=== PATIENT | female | born 1965 | race Caucasian/White ===

== ENCOUNTER 2022-04-05 21:32 | Inpatient (IN) ==
[2022-04-05 23:00] LABS: Influenza A virus by PCR Negative (Neg); Influenza B virus by PCR Negative (Neg); RSV by PCR Negative (Neg); SARS CoV2 RNA(COVID-19) Ceph NEGATIVE (Negative)
[2022-04-05] MEDS ORDERED: SODIUM CHLORIDE 0.9% 1000ML 1,000 ML IV ONE (23:16)
--- NOTE | 2022-04-05 23:22 | Emergency Department Note ---
History of Present Illness General Chief complaint: Weakness Stated complaint: WEAKNESS, FLU LIKE SX Time Seen by Provider: 04/05/22 22:56 History of Present Illness 56-year-old female visiting from [facility] states that she was diagnosed with a urinary tract infection 4 days ago is currently on Macrobid states today she had shaking chills and rigors. Patient called EMS she denies cough cold congestion symptoms. Patient states that during COVID she was in the ICU in [place] due to pneumonia. States that she feels generally weak. Patient denies any flank or back pain denies abdominal pain. Denies chest pain. There are no other mitigating or alleviating factors Home Medications Medication Instructions Recorded Confirmed Type alprazolam 0.5 mg tablet 0.5 - 1 mg PO DIRECTED PRN 04/05/22 04/05/22 History Anxiety fluticasone propionate 50 1 spray intranasal DAILY PRN 04/05/22 04/05/22 History mcg/actuation nasal Congestion spray,suspension lisinopril 40 mg tablet 40 mg PO DAILY 04/05/22 04/05/22 History metoprolol succinate 100 mg 100 mg PO DAILY 04/05/22 04/05/22 History tablet,extended release 24 hr nitrofurantoin 100 mg PO BID 04/05/22 04/05/22 History monohydrate/macrocrystals 100 mg capsule (Macrobid) Allergies Allergy/AdvReac Type Severity Reaction Status Date / Time Sulfa (Sulfonamide Allergy Intermediate Rash Verified 04/05/22 23:48 Antibiotics) SINA COLORING Allergy Severe Anaphylaxis Uncoded 04/05/22 23:48 Past Med/Surg History Social History Smoking Status: Never smoker Feels Safe at Home: Yes Immunizations: Past medical history includes sepsis, pneumonia, intubated in the ICU during COVID, urinary tract infection, hypertension Review of Systems A total of 10 systems reviewed and were otherwise negative Constitutional: + fever, + chills and + body aches Respiratory: no cough Genitourinary (Female): no dysuria Physical Exam Vital Signs Vital Signs - 24 hr 04/05/22 21:44 04/05/22 22:54 04/05/22 22:58 Temperature 37 C Temperature Source Temporal Artery Scan Pulse Rate 91 H 101 H Pulse Rate [Right Finger] 103 H Pulse Rate from SpO2 Sensor Pulse Rhythm [Right Finger] Regular Pulse Strength [Right Finger] Normal Respiratory Rate 14 19 Respiratory Effort / Characteristics Non-Labored Spontaneous Respiratory Depth Normal Normal Respiratory Pattern Regular Blood Pressure 117/76 Blood Pressure [Right Arm] 125/86 Blood Pressure Mean 89 Blood Pressure Mean [Right Arm] 99 Blood Pressure Position [Right Arm] Lying Pulse Oximetry 93 94 Oxygen Delivery Method Room Air Oxygen Flow Rate Sepsis Recent Fever Within 48 Hours Yes Sepsis New/Unexplained Change in Mental Status No Sepsis Action Taken by Nursing No Action Required Oxygen Flow Rate - Titration Pulse Oximetry Post Tiitration 04/06/22 00:00 04/06/22 00:43 04/06/22 01:46 Temperature 37.9 C H Temperature Source Oral Pulse Rate 95 H 101 H Pulse Rate [Right Finger] Pulse Rate from SpO2 Sensor 95 H 102 H Pulse Rhythm [Right Finger] Pulse Strength [Right Finger] Respiratory Rate 28 H 26 H Respiratory Effort / Characteristics Respiratory Depth Respiratory Pattern Blood Pressure 139/95 Blood Pressure [Right Arm] Blood Pressure Mean 109 Blood Pressure Mean [Right Arm] Blood Pressure Position [Right Arm] Pulse Oximetry 92 91 Oxygen Delivery Method Room Air Oxygen Flow Rate Sepsis Recent Fever Within 48 Hours Sepsis New/Unexplained Change in Mental Status Sepsis Action Taken by Nursing Oxygen Flow Rate - Titration Pulse Oximetry Post Tiitration 04/06/22 01:55 04/06/22 02:58 04/06/22 02:45 Temperature Temperature Source Pulse Rate 103 H Pulse Rate [Right Finger] 92 H Pulse Rate from SpO2 Sensor Pulse Rhythm [Right Finger] Regular Pulse Strength [Right Finger] Normal Respiratory Rate 14 Respiratory Effort / Characteristics Non-Labored Spontaneous Respiratory Depth Normal Respiratory Pattern Regular Blood Pressure Blood Pressure [Right Arm] 148/88 H Blood Pressure Mean Blood Pressure Mean [Right Arm] 108 Blood Pressure Position [Right Arm] Pulse Oximetry 97 Oxygen Delivery Method Room Air Nasal Cannula Room Air Oxygen Flow Rate 88 Sepsis Recent Fever Within 48 Hours Sepsis New/Unexplained Change in Mental Status Sepsis Action Taken by Nursing Oxygen Flow Rate - Titration 2 Pulse Oximetry Post Tiitration 92 04/06/22 03:52 04/06/22 04:32 04/06/22 05:41 Temperature Temperature Source Pulse Rate 84 Pulse Rate [Right Finger] 86 Pulse Rate from SpO2 Sensor Pulse Rhythm [Right Finger] Regular Pulse Strength [Right Finger] Normal Respiratory Rate 14 15 Respiratory Effort / Characteristics Non-Labored Spontaneous Respiratory Depth Normal Respiratory Pattern Regular Blood Pressure 139/95 Blood Pressure [Right Arm] 139/94 Blood Pressure Mean Blood Pressure Mean [Right Arm] 109 Blood Pressure Position [Right Arm] Pulse Oximetry 90 96 Oxygen Delivery Method Nasal Cannula Nasal Cannula Nasal Cannula Oxygen Flow Rate 2 2 2 Sepsis Recent Fever Within 48 Hours Sepsis New/Unexplained Change in Mental Status Sepsis Action Taken by Nursing Oxygen Flow Rate - Titration Pulse Oximetry Post Tiitration 95 GENERAL: Patient is awake alert in no acute distress patient is resting comfortably and showing no signs of anxiety EYES: The conjunctivae are clear. The pupils are round and reactive. EARS, NOSE, MOUTH AND THROAT: The nose is without any evidence of any deformity. Mucous membranes are moist. Tongue is midline. NECK: The neck is nontender and supple. RESPIRATORY: Normal respiratory effort is noted there is no evidence of wheezing rhonchi or rales CARDIOVASCULAR: Regular rate and rhythm noted there no murmurs rubs or gallops normal S1 normal S2. GASTROINTESTINAL: The abdomen is soft. Abdomen is nontender. BACK: No midline tenderness or or step-off noted range of motion in flexion extension as well as rotation no signs of muscle spasm noted MUSCULOSKELETAL/EXTREMITIES: There is no evidence of gross deformity full range of motion is noted in the hips and shoulders. SKIN: There is no obvious evidence of any rash. There are no petechiae, pallor or cyanosis noted. NEUROLOGIC: Patient is awake alert and oriented x3 strength is symmetric PSYCH: Normal affect Course Reevaluation(s) Reevaluation #1: On reexamination the patient is tachycardic heart rate is 110 pulse ox is 91%. I reassessed the patient she states that earlier tonight she was short of breath when she was walking on the campus. Patient states that she traveled in from [place] via car. He had a prior admission 2 years ago for pneumonia. Time: 01:50 Reevaluation #2: Patient was given Motrin, patient was given IV fluids, patient was started on antibiotics, I suspect that the patient may have early sepsis and pneumonia Time: 04:55 Consultations Consultation #1: Case was discussed with the [facility]ist for admission Time: 05:15 Administered Medications Discontinued Medications Sodium Chloride (Nss 1000ml) 1,000 mls @ 999 mls/hr IV .Q1H1M ONE Stop: 04/06/22 00:16 Last Infusion: 04/06/22 00:36 Dose: 999 mls/hr Documented By: Admin: 04/05/22 23:31 Dose: 999 mls/hr Documented By: LUCILA Sodium Chloride (Nss 1000ml) 2,000 mls @ 999 mls/hr IV .Q2H1M ONE Stop: 04/06/22 03:42 Last Infusion: 04/06/22 05:08 Dose: 999 mls/hr Documented By: Infusion: 04/06/22 03:44 Dose: 999 mls/hr Documented By: Admin: 04/06/22 01:47 Dose: 999 mls/hr Documented By: BUCK Ceftriaxone Sodium (Rocephin) 2,000 mg in 70 mls @ 140 mls/hr IV NOW STA Stop: 04/06/22 02:11 Last Infusion: 04/06/22 02:51 Dose: 140 mls/hr Documented By: Admin: 04/06/22 01:51 Dose: 140 mls/hr Documented By: BUCK Ibuprofen (Ibuprofen 800 Mg Tab) 800 mg PO NOW STA Stop: 04/06/22 01:50 Last Admin: 04/06/22 01:53 Dose: 800 mg Documented By: BUCK Ioversol (Optiray 320 500ml) 125 ml IV ONCE ONE Stop: 04/06/22 03:33 Last Admin: 04/06/22 03:33 Dose: 109 ml Documented By: CONNOR Medical Decision Making Medical Records Attestation: I reviewed the patient's medical records. Home Medications Current Medication List: was personally reviewed by Laboratory Data Attestation: I reviewed the patient's lab results. Patient's lab work was reviewed by patient is not anemic 04/05/22 22:41 04/05/22 22:41 Lab Results 04/05/22 04/05/22 04/05/22 Range/Units 21:48 22:41 22:41 WBC 10.93 H (4.8-10.8) K/ul RBC 3.69 L (4.20-5.40) M/uL Hgb 13.2 (12.0-16.0) g/dl Hct 37.9 (37.0-47.0) % MCV 102.7 H (80.0-100.0) fL MCH 35.8 H (25.0-34.0) pg MCHC 34.8 (32.0-36.0) g/dL RDW Std Deviation 51.0 H (36.4-46.3) fL RDW Coeff of Aly 13.4 (11.5-14.5) % Plt Count 175 (130-400) K/uL MPV 11.8 (9.4-12.4) fL Immature Gran % (Auto) 0.6 % Neut % (Auto) 92.6 % Lymph % (Auto) 2.7 % [place] % (Auto) 3.2 % Eos % (Auto) 0.8 % Baso % (Auto) 0.1 % Neut # (Auto) 10.11 H (1.40-6.50) K/uL Lymph # (Auto) 0.30 L (1.2-3.4) K/uL [place] # (Auto) 0.35 (0.11-0.59) K/uL Eos # (Auto) 0.09 (0-0.50) K/uL Baso # (Auto) 0.01 (0-0.2) K/uL Immature Gran # (Auto) 0.07 (0.01-0.20) K/uL Toxic Vacuolation 1+ Sodium 135 L (136-145) mmol/L Potassium 3.8 (3.5-5.1) mmol/L Chloride 104 (98-107) mmol/L Carbon Dioxide 23 (21-32) mmol/L Anion Gap 8 (3-11) BUN 15 (6-23) mg/dl Creatinine 0.64 (0.6-1.2) mg/dl Est Cr Clr Drug Dosing 112.3 ml/min Est GFR ( Amer) 117.3 ml/min Est GFR (Non-Af Amer) 101.2 ml/min BUN/Creatinine Ratio 23.4 H (10-20) Glucose 126 H (70-99(Fasting)) mg/dl Lactate (0.4-2.0) mmol/L Calcium 9.7 (8.5-10.1) mg/dl Total Bilirubin 1.1 H (0.2-1.0) mg/dl AST 19 (13-39) U/L ALT 17 (7-52) U/L Alkaline Phosphatase 73 (34-104) U/L Troponin I High Sens 4.8 (0-14) pg/ml Total Protein 6.9 (6.0-8.3) gm/dl Albumin 4.5 (3.4-5.0) gm/dl Globulin 2.4 L (2.5-4.0) gm/dl Albumin/Globulin Ratio 1.9 (0.9-2) Urine Color Urine Appearance (Clear) Urine pH (4.5-7.5) Ur Specific [place] (1.000-1.030) Urine Protein (Negative) Urine Glucose (UA) (Negative) Urine Ketones (Negative) Urine Blood (Negative) Urine Nitrite (Negative) Urine Bilirubin (Negative) Urine Urobilinogen (Negative) Ur Leukocyte Esterase (Negative) Urine RBC (0-4) /hpf Urine WBC (0-5) /hpf Ur Epithelial Cells (0-5) /lpf Urine Bacteria (Negative) SARS-CoV-2 (PCR) NEGATIVE (Negative) Influenza Type A (PCR) Negative (Neg) Influenza Type B (PCR) Negative (Neg) RSV (RT-PCR) Negative (Neg) 04/05/22 04/05/22 Range/Units 23:12 23:23 WBC (4.8-10.8) K/ul RBC (4.20-5.40) M/uL Hgb (12.0-16.0) g/dl Hct (37.0-47.0) % MCV (80.0-100.0) fL MCH (25.0-34.0) pg MCHC (32.0-36.0) g/dL RDW Std Deviation (36.4-46.3) fL RDW Coeff of Aly (11.5-14.5) % Plt Count (130-400) K/uL MPV (9.4-12.4) fL Immature Gran % (Auto) % Neut % (Auto) % Lymph % (Auto) % [place] % (Auto) % Eos % (Auto) % Baso % (Auto) % Neut # (Auto) (1.40-6.50) K/uL Lymph # (Auto) (1.2-3.4) K/uL [place] # (Auto) (0.11-0.59) K/uL Eos # (Auto) (0-0.50) K/uL Baso # (Auto) (0-0.2) K/uL Immature Gran # (Auto) (0.01-0.20) K/uL Toxic Vacuolation Sodium (136-145) mmol/L Potassium (3.5-5.1) mmol/L Chloride (98-107) mmol/L Carbon Dioxide (21-32) mmol/L Anion Gap (3-11) BUN (6-23) mg/dl Creatinine (0.6-1.2) mg/dl Est Cr Clr Drug Dosing ml/min Est GFR ( Amer) ml/min Est GFR (Non-Af Amer) ml/min BUN/Creatinine Ratio (10-20) Glucose (70-99(Fasting)) mg/dl Lactate 1.3 (0.4-2.0) mmol/L Calcium (8.5-10.1) mg/dl Total Bilirubin (0.2-1.0) mg/dl AST (13-39) U/L ALT (7-52) U/L Alkaline Phosphatase (34-104) U/L Troponin I High Sens (0-14) pg/ml Total Protein (6.0-8.3) gm/dl Albumin (3.4-5.0) gm/dl Globulin (2.5-4.0) gm/dl Albumin/Globulin Ratio (0.9-2) Urine Color [place] Urine Appearance Clear (Clear) Urine pH (4.5-7.5) Ur Specific [place] 1.025 (1.000-1.030) Urine Protein (Negative) Urine Glucose (UA) (Negative) Urine Ketones (Negative) Urine Blood (Negative) Urine Nitrite (Negative) Urine Bilirubin (Negative) Urine Urobilinogen (Negative) Ur Leukocyte Esterase (Negative) Urine RBC 10-30 H (0-4) /hpf Urine WBC 10-30 H (0-5) /hpf Ur Epithelial Cells 20-30 H (0-5) /lpf Urine Bacteria Negative (Negative) SARS-CoV-2 (PCR) (Negative) Influenza Type A (PCR) (Neg) Influenza Type B (PCR) (Neg) RSV (RT-PCR) (Neg) Imaging Data Attestation: I personally reviewed and interpreted this imaging study as follows: ECG Data Attestation: I personally reviewed and interpreted this ECG as follows: Additional Comments: EKG interpreted by me normal sinus rhythm rate of 99 normal intervals normal axis no obvious ST segment elevation or depression no prior for comparison MDM Narrative Medical decision making differential diagnosis includes sepsis, urinary tract infection, pneumonia, viral syndrome, dehydration Plan is to check sepsis labs, give IV fluids Patient had CTs performed, patient was started on IV fluids patient was given a fluid bolus, patient was started on antibiotics I suspect the patient may have early sepsis Case was discussed with the hospitalist for admission Impression & Plan Sepsis, Pneumonia, Hypoxia Discharge Plan Visit Data Chief Complaint: Weakness Stated Complaint: WEAKNESS, FLU LIKE SX ED Provider: Michael Petersen Discharge Problem: Sepsis, Pneumonia, Hypoxia Patient Disposition: Admitted As Inpatient Discharge Instructions Interventions: ED Discharge Assessment Last Done: 04/06/22 05:41 Forms Stand Alone Forms: My [employer] Prescriptions Prescriptions: No Action metoprolol succinate 100 mg Tablet Extended Release 24 Hr 100 mg PO DAILY alprazolam 0.5 mg Tablet 0.5 - 1 mg PO DIRECTED PRN (Reason: Anxiety) lisinopril 40 mg Tablet 40 mg PO DAILY fluticasone propionate [Flonase] 50 mcg/actuation [place],Suspension 1 spray INTRANASAL DAILY PRN (Reason: Congestion) Rx Instructions: administer into each nostril nitrofurantoin monohyd/m-cryst [Macrobid] 100 mg Capsule 100 mg PO BID Rx Instructions: must administer with a meal/food Referrals Referrals: PCPNO [Primary Care Provider] -
[2022-04-05 23:32] LABS: Albumin Globulin Ratio 1.9 (0.9-2); Albumin Level 4.5 gm/dl (3.4-5.0); BUN Creatinine Ratio 23.4 (10-20); Bilirubin,Total 1.1 mg/dl (0.2-1.0); Calcium 9.7 mg/dl (8.5-10.1); Creatinine Clr Calc Pharmacy 112.3 ml/min; Est GFR (African American) 117.3 ml/min; Est GFR (Non-African American) 101.2 ml/min; Globulin 2.4 gm/dl (2.5-4.0); Potassium 3.8 mmol/L (3.5-5.1); Total Protein 6.9 gm/dl (6.0-8.3)
[2022-04-05 23:39] LABS: Hematocrit (blood only) 37.9 % (37.0-47.0); Hemoglobin 13.2 g/dl (12.0-16.0); Mean Corpuscular Hemoglobin 35.8 pg (25.0-34.0); Mean Corpuscular Hgb Conc 34.8 g/dL (32.0-36.0); Mean Corpuscular Volume 102.7 fL (80.0-100.0); Mean Platelet Volume 11.8 fL (9.4-12.4); Platelet Count 175 K/uL (130-400); RDW Coefficient of Variation 13.4 % (11.5-14.5); Red Blood Count 3.69 M/uL (4.20-5.40); Troponin I High Sensitivity 4.8 pg/ml (0-14); White Blood Count 10.93 K/ul (4.8-10.8)
[2022-04-05 23:55] LABS: Appearance Urine Clear (Clear); Color Urine Orange; Specific Gravity Urine 1.025 (1.000-1.030)
[2022-04-05 23:57] LABS: Epithelial Cell Urine 20-30 /lpf (0-5)
[2022-04-05 23:58] LABS: Bacteria Urine Negative (Negative)
[2022-04-06 00:02] LABS: Basophils # (auto) 0.01 K/uL (0-0.2); Basophils % (auto) 0.1 %; Eosinophils # (auto) 0.09 K/uL (0-0.50); Eosinophils % (auto) 0.8 %; Immature Granulocytes # (auto) 0.07 K/uL (0.01-0.20); Immature Granulocytes % (auto) 0.6 %; Lymphocytes % (auto) 2.7 %; Monocytes # (auto) 0.35 K/uL (0.11-0.59); Monocytes % (auto) 3.2 %; Neutrophils # (auto) 10.11 K/uL (1.40-6.50); Neutrophils % (auto) 92.6 %; Toxic Vacuolation 1+
[2022-04-06] MEDS ORDERED: SODIUM CHLORIDE 0.9% 1000ML 2,000 ML IV ONE (01:42)
[2022-04-06] MEDS ORDERED: cefTRIAXone SODIUM 2,000 MG/70 ML BAG IV STA (01:42)
[2022-04-06] MEDS ORDERED: IBUPROFEN 800 MG TAB PO STA (01:49)
[2022-04-06] MEDS ORDERED: OPTIRAY 320 500ml IV ONE (03:32)
--- NOTE | 2022-04-06 06:08 | History & Physical Report ---
Date of Service April 06, 2022 Assessment & Plan (1) Pneumonia: Plan: Suspect pneumonia - patient with fever, chills, body aches, left sided back pain. Also with mild leukocytosis and hypoxia requiring supplemental O2. -Follow cultures -Check procalcitonin -Ceftriaxone and Azithromycin -Supplemental O2 PRN (2) Hypertension: Plan: Chronic. Well controlled -Continue Lisinopril 40mg po daily -Continue Metoprolol -Monitor BP -Await formal CT read -Tylenol PRN -Ibuprofen PRN -Check BNP (3) Anxiety: Plan: Chronic -Continue Xanax PRN F/E/N - [place]. Monitor electrolytes. Heart healthy diet as tolerated Ppx - Lovenox Code - Full Dispo - Admit to medical with telemetry History of Present Illness Chief Complaint: fever, chills Primary Care Provider: ALEXIS PCP Tala SouzaGina is a pleasant 56yo female with history of HTN presenting with fever, chills and back pain. Patient reports she began to develop UTI symptoms several days ago. She started taking Macrobid. Yesterday 04/05/22 she woke up feeling very ill - fever, chills and body aches as well as SOB and some mild dry cough and chest tightness. She has pain in her back behind her left shoulder as well as across her mid-thoracic region. Feels as though she cannot take a deep breath. She denies abdominal pain, nausea, vomiting or diarrhea. Does have persistent dysuria. Otherwise, no additional complaints. On arrival patient mildly hypoxic with saturation of 92% on room air. She is currently on supplemental O2 - 2L NC saturating 96%. Of note, patient has a history of severe PNA in February 2019 for which she was ventilated x 5 days. Symptoms feel similar. ER Course: ceftriaxone NSS Ibuprofen Allergies Allergy/AdvReac Type Severity Reaction Status Date / Time Sulfa (Sulfonamide Allergy Intermediate Rash Verified 04/05/22 23:48 Antibiotics) SINA COLORING Allergy Severe Anaphylaxis Uncoded 04/05/22 23:48 Home Medications Medication Instructions Recorded Confirmed Type alprazolam 0.5 mg tablet 0.5 - 1 mg PO DIRECTED PRN 04/05/22 04/05/22 History Anxiety fluticasone propionate 50 1 spray intranasal DAILY PRN 04/05/22 04/05/22 History mcg/actuation nasal Congestion spray,suspension lisinopril 40 mg tablet 40 mg PO DAILY 04/05/22 04/05/22 History metoprolol succinate 100 mg 100 mg PO DAILY 04/05/22 04/05/22 History tablet,extended release 24 hr nitrofurantoin 100 mg PO BID 04/05/22 04/05/22 History monohydrate/macrocrystals 100 mg capsule (Macrobid) Past Med/Surg History Medical History (Updated 04/06/22 @ 06:01 by Corrina Sterling DO) Anxiety Hypertension Pneumonia Surgical History (Updated 04/06/22 @ 06:02 by Corrina Sterling DO) History of appendectomy History of dilation and curettage History of thumb surgery Family History (Updated 04/06/22 @ 06:02 by Corrina Sterling DO) Other Heart disease Social History (Updated 04/06/22 @ 06:02 by Corrina Sterling DO) Smoking Status: Current some day smoker Hx Alcohol Use: Yes Hx Substance Use: No Feels Safe at Home: Yes Review of Systems Review of Systems: All systems reviewed & are unremarkable except as noted in HPI & below Physical Exam Physical Exam: General: patient resting comfortably, NAD, non-toxic in appearance, AA&O x 4 Skin: warm, dry, intact, no rashes or lesions HEENT: NC/AT, PERRL, EOMI, anicteric sclera, conjunctiva without injection, external ear normal to inspection and nontender, nares patent, moist mucus membranes, dentition intact, no oropharyngeal lesions, neck supple, trachea midl ine, no LAD, no thyromegaly, no JVD Heart: +S1/S2, regular, no m/r/g Lungs: equal air entry bilaterally, faint crackles bilateral lung bases, no rhonchi or wheeze Abd: +BS, soft, NT/ND, no masses/organomegaly/ascites, no CVA tenderness Ext: warm, 2+ pulses in UE/LE bilaterally, no clubbing/cyanosis or edema Neuro: nonfocal, patient AA&O x 4, speech intact, no facial droop, moving all extremities on command with equal strength 5/5 Results & Data Results & Data ([facility]) Vital Signs (Past 12 Hours) Vital Signs Temp Pulse Pulse Resp BP BP Pulse Ox 04/06/22 05:41 84 15 139/95 04/06/22 04:32 86 14 139/94 96 04/06/22 03:52 90 04/06/22 02:45 92 H 14 148/88 H 97 04/06/22 02:58 103 H 04/06/22 01:55 04/06/22 01:46 37.9 C H 04/06/22 00:43 101 H 26 H 139/95 91 04/06/22 00:00 95 H 28 H 92 04/05/22 22:58 101 H 04/05/22 22:54 103 H 19 125/86 94 04/05/22 21:44 37 C 91 H 14 117/76 93 O2 Del Method O2 Flow Rate 04/06/22 05:41 Nasal Cannula 2 04/06/22 04:32 Nasal Cannula 2 04/06/22 03:52 Nasal Cannula 2 04/06/22 02:45 Room Air 04/06/22 02:58 04/06/22 01:55 Room Air, Nasal Cannula 88 04/06/22 01:46 04/06/22 00:43 Room Air 04/06/22 00:00 04/05/22 22:58 04/05/22 22:54 Room Air 04/05/22 21:44 Laboratory Results Laboratory Results WBC 10.93 K/ul (4.8-10.8) H 04/05/22 22:41 RBC 3.69 M/uL (4.20-5.40) L 04/05/22 22:41 Hgb 13.2 g/dl (12.0-16.0) 04/05/22 22:41 Hct 37.9 % (37.0-47.0) 04/05/22 22:41 MCV 102.7 fL (80.0-100.0) H 04/05/22 22:41 MCH 35.8 pg (25.0-34.0) H 04/05/22 22:41 MCHC 34.8 g/dL (32.0-36.0) 04/05/22 22:41 RDW Std Deviation 51.0 fL (36.4-46.3) H 04/05/22 22:41 RDW Coeff of Aly 13.4 % (11.5-14.5) 04/05/22 22:41 Plt Count 175 K/uL (130-400) 04/05/22 22:41 MPV 11.8 fL (9.4-12.4) 04/05/22 22:41 Immature Gran % (Auto) 0.6 % 04/05/22 22:41 Neut % (Auto) 92.6 % 04/05/22 22:41 Lymph % (Auto) 2.7 % 04/05/22 22:41 [place] % (Auto) 3.2 % 04/05/22 22:41 Eos % (Auto) 0.8 % 04/05/22 22:41 Baso % (Auto) 0.1 % 04/05/22 22:41 Neut # (Auto) 10.11 K/uL (1.40-6.50) H 04/05/22 22:41 Lymph # (Auto) 0.30 K/uL (1.2-3.4) L 04/05/22 22:41 [place] # (Auto) 0.35 K/uL (0.11-0.59) 04/05/22 22:41 Eos # (Auto) 0.09 K/uL (0-0.50) 04/05/22 22:41 Baso # (Auto) 0.01 K/uL (0-0.2) 04/05/22 22:41 Immature Gran # (Auto) 0.07 K/uL (0.01-0.20) 04/05/22 22:41 Toxic Vacuolation 1+ 04/05/22 22:41 Sodium 135 mmol/L (136-145) L 04/05/22 22:41 Potassium 3.8 mmol/L (3.5-5.1) 04/05/22 22:41 Chloride 104 mmol/L (98-107) 04/05/22 22:41 Carbon Dioxide 23 mmol/L (21-32) 04/05/22 22:41 Anion Gap 8 (3-11) 04/05/22 22:41 BUN 15 mg/dl (6-23) 04/05/22 22:41 Creatinine 0.64 mg/dl (0.6-1.2) 04/05/22 22:41 Est Cr Clr Drug Dosing 112.3 ml/min 04/05/22 22:41 Est GFR ( Amer) 117.3 ml/min 04/05/22 22:41 Est GFR (Non-Af Amer) 101.2 ml/min 04/05/22 22:41 BUN/Creatinine Ratio 23.4 (10-20) H 04/05/22 22:41 Glucose 126 mg/dl (70-99(Fasting)) H 04/05/22 22:41 Lactate 1.3 mmol/L (0.4-2.0) 04/05/22 23:23 Calcium 9.7 mg/dl (8.5-10.1) 04/05/22 22:41 Total Bilirubin 1.1 mg/dl (0.2-1.0) H 04/05/22 22:41 AST 19 U/L (13-39) 04/05/22 22:41 ALT 17 U/L (7-52) 04/05/22 22:41 Alkaline Phosphatase 73 U/L (34-104) 04/05/22 22:41 Troponin I High Sens 4.8 pg/ml (0-14) 04/05/22 22:41 Total Protein 6.9 gm/dl (6.0-8.3) 04/05/22 22:41 Albumin 4.5 gm/dl (3.4-5.0) 04/05/22 22:41 Globulin 2.4 gm/dl (2.5-4.0) L 04/05/22 22:41 Albumin/Globulin Ratio 1.9 (0.9-2) 04/05/22 22:41 Urine Color [place] 04/05/22 23:12 Urine Appearance Clear (Clear) 04/05/22 23:12 Urine pH (4.5-7.5) 04/05/22 23:12 Ur Specific [place] 1.025 (1.000-1.030) 04/05/22 23:12 Urine Protein (Negative) 04/05/22 23:12 Urine Glucose (UA) (Negative) 04/05/22 23:12 Urine Ketones (Negative) 04/05/22 23:12 Urine Blood (Negative) 04/05/22 23:12 Urine Nitrite (Negative) 04/05/22 23:12 Urine Bilirubin (Negative) 04/05/22 23:12 Urine Urobilinogen (Negative) 04/05/22 23:12 Ur Leukocyte Esterase (Negative) 04/05/22 23:12 Urine RBC 10-30 /hpf (0-4) H 04/05/22 23:12 Urine WBC 10-30 /hpf (0-5) H 04/05/22 23:12 Ur Epithelial Cells 20-30 /lpf (0-5) H 04/05/22 23:12 Urine Bacteria Negative (Negative) 04/05/22 23:12 SARS-CoV-2 (PCR) NEGATIVE (Negative) 04/05/22 21:48 Influenza Type A (PCR) Negative (Neg) 04/05/22 21:48 Influenza Type B (PCR) Negative (Neg) 04/05/22 21:48 RSV (RT-PCR) Negative (Neg) 04/05/22 21:48 Diagnostic Findings CTA - per stat rad - small left pleural effusion, cardiomegaly CT abdomen - Cystitis Code Status & VTE Plan VTE Prophylaxis Plan VTE Prophylaxis will be ordered: Yes PG Care Time/CCT Total # of Minutes Spent Total Time Spent with Patient: Total time spent is greater than 50% in coordination of care (as documented) at patient's floor/unit and/or counseling patient: Coding Level of Care Code 44398 INT INP/OBS CARE 2/55MIN Diagnoses Pneumonia J18.9 Hypertension I10 Anxiety F41.9
[2022-04-06] MEDS ORDERED: ALPRAZolam 0.5 MG TABLET PO PRN (06:23)
[2022-04-06] MEDS ORDERED: FLUTICASONE PROPIONATE NA SPR 16 GM BTL PRN (06:23)
--- NOTE | 2022-04-06 06:39 | CT Scan Report ---
CT OF THE ABDOMEN AND PELVIS WITH CONTRAST CLINICAL HISTORY: Back pain. COMPARISON STUDY: None. TECHNIQUE: Following IV administration of 109 mL of Optiray, axial images of the abdomen and pelvis w ere obtained from the lung bases to the proximal femurs. Images were reviewed in the axial, sagittal, and coronal planes. IV contrast was administered without complication. Automated exposure control w as utilized for the study. A dose lowering technique was utilized adhering to the principles of KARLENE Ortiz. FINDINGS: Please note that the chest CT will be reported separately. There is a trace left pleural ef fusion. Interlobular septal thickening is noted. Subpleural opacities favor atelectasis. There is pec tus excavatum deformity. No pneumatosis, free air or portal venous gas is present. Liver, spleen, adr enal glands, kidneys and pancreas are unremarkable. There is no biliary or pancreatic ductal dilatati on. No hydronephrosis. No peripancreatic or pericholecystic infiltration is present. There is no evid ence for a bowel obstruction. The appendix is surgically absent. There is trace fluid within the pelv is. Bladder wall thickening is noted. There is mild adjacent stranding. There is no lymphadenopathy. Major vasculature is patent. Moderate atherosclerotic plaque within the abdominal aorta is noted. [place] iber of the vessels normal. No acute fractures within the visualized skeletal structures are present. No suspicious osseous lesions are present. Minimal degenerative changes within the lumbar spine are present. A few splenules are present. IMPRESSION: 1. Bladder wall thickening which could be correlated with urinalysis to exclude cystitis. 2. Trace fluid within the pelvis. 3. No bowel obstruction. No bowel wall thickening. 4. Trace left pleural effusion. Mild interstitial pulmonary edema within the lung bases. ACT 112: Negative or not required by law. Electronically signed by: Je Young M.D. 04/06/2022 6:37 AM
[2022-04-06] MEDS: ACETAMINOPHEN 325 MG TAB PO PRN ×2 (06:43→12:32)
[2022-04-06] MEDS ORDERED: AZITHROMYCIN 500 MG in DEXTROSE 5% 250 ML IV ONE (06:45)
--- NOTE | 2022-04-06 06:47 | CT Scan Report ---
CT ANGIOGRAPHY OF THE CHEST, PULMONARY EMBOLUS PROTOCOL CLINICAL HISTORY: Chest pain. Shortness of breath. COMPARISON STUDY: Chest radiograph performed earlier today. TECHNIQUE: Following IV administration of 109 mL of Optiray, helical axial images of the chest were o btained utilizing the pulmonary embolus protocol. Maximal intensity projections and sagittal and cor onal reformats were viewed on an independent 3D workstation. IV contrast was administered without co mplication. Automated exposure control was utilized for the study. A dose lowering technique was ut ilized adhering to the principles of ALARA. CT DOSE: 721.60 mGy.cm FINDINGS: No pulmonary emboli are identified. There is mild dilatation of the central pulmonary timothy chuy. There is pectus excavatum deformity. Mild cardiomegaly is noted. Is no pericardial effusion. A trace left pleural effusion is noted. There is no pneumothorax. Multifocal subpleural opacities favor atelectasis. There is interlobular septal thickening. Subpleural cystic change/paraseptal emphysema within the right upper lobe is noted. Central airways are patent. No fractures or suspicious lesions within the bony thorax are present. No pathologically enlarged thoracic lymph nodes are present. Ther e are prominent mediastinal and hilar lymph nodes. Several calcified thoracic lymph nodes are present . Bronchial wall thickening may be related to volume overload. IMPRESSION: 1. No pulmonary emboli identified. 2. Interstitial pulmonary edema with trace left pleural effusion. 3. Subpleural opacities which favor atelectasis. Although less likely, an infectious process cannot b e excluded. 4. Mild cardiomegaly and mild dilatation of the central pulmonary arteries which raises the possibili ty of pulmonary arterial hypertension. ACT 112: Negative or not required by law. Electronically signed by: Je Young M.D. 04/06/2022 6:45 AM
[2022-04-06] MEDS: IBUPROFEN 600 MG TAB PO PRN ×2 (08:31→17:42)
[2022-04-06] MEDS: lisinopril 40 MG TAB PO SCH (08:32)
[2022-04-06] MEDS: METOPROLOL SUCC 50MG EXT REL TAB PO SCH (08:32)
[2022-04-06] MEDS: ENOXAPARIN INJ 40 MG/0.4 ML SYR SQ SCH (08:33)
[2022-04-06 08:51] LABS: Magnesium 1.4 mg/dl (1.7-2.4); Phosphorus 3.7 mg/dl (2.5-4.9)
--- NOTE | 2022-04-06 10:47 | XRay Report ---
XR chest 1V portable HISTORY: cough COMPARISON: None. FINDINGS: No pneumothorax. The heart is enlarged. There is mild interstitial pulmonary edema and trac e bilateral pleural effusions. Bibasilar linear densities favor subsegmental atelectasis. IMPRESSION: Cardiomegaly with mild interstitial pulmonary edema and trace bilateral pleural effusions. ACT 112: Negative or not required by law. Electronically signed by: Vikas Singh M.D. 04/06/2022 10:46 AM
[2022-04-06] MEDS ORDERED: FUROSEMIDE INJ 20 MG/2 ML VIAL IV ONE ×2 (11:53→18:00)
[2022-04-06] MEDS ORDERED: POTASSIUM CHLORIDE CRTAB 20 MEQ TABCR PO STA (11:53)
[2022-04-06] MEDS: MAGNESIUM SULFATE / D5W 1 GM/100 ML BAG IV SCH ×3 (12:37→16:24)
--- NOTE | 2022-04-06 12:48 | Electrocardiogram Report ---
Test Reason : Blood Pressure : / mmHG Vent. Rate : 099 BPM Atrial Rate : 099 BPM P-R Int : 158 ms QRS Dur : 076 ms QT Int : 328 ms P-R-T Axes : 063 018 011 degrees QTc Int : 420 ms Normal sinus rhythm Possible Left atrial enlargement Borderline ECG No previous ECGs available Confirmed by Nghia Bates ([id number]) on 04/06/2022 12:48:20 PM Referred By: REFERRED SELF Confirmed By:Laci Bates
[2022-04-06] MEDS ORDERED: oxyCODONE HCL IR 5 MG TAB (IMMEDIATE RELEASE) PO PRN (13:12)
[2022-04-06] MEDS ORDERED: oxyCODONE HCL IR 5 MG TAB (IMMEDIATE RELEASE) PO STA (13:12)
--- NOTE | 2022-04-06 13:14 | Hospitalist Progress Note ---
Date of Service April 06, 2022 Assessment & Plan (1) Pneumonia: Plan: Patient presented with fever/chills/back pain/+cough with leukocytosis and hypoxia requiring supplemental O2. Traveled by car from [place] for work at [employer] and recent started Macrobid for suspected UTI. Procal 0.21, placed on Ceftriaxone/Azithromycin Mag 1.5 -- IV replacement ordered Incentive spirometer, flutter valve, sputum production if able to produce Supplemental O2 to maintain sats CTA chest NEGATIVE for PE -- notes interstitial pulmonary edema w/ trace L pleural effusion, subpleural opacities favoring atelectasis -- although less likely, infectious process not excluded. Mild cardiomegaly w/ mild dilation of central pulmonary arteries raises possibility of PAH Of note, patient states similar experience at beginning of pandemic and had been intubated x 5 days (reports to be from volume overload/effusions) and does report increased fatigue recently/daytime sleepiness and likely underlying ANISHA Suspect volume overload contributing to most of symptoms, but will continue abx/pulmonary toilet/O2 as above -- see below for CHF (2) CHF (congestive heart failure): Plan: suspect CHF given elevated BNP/interstitial edema on imaging/hyponatremia. Trop 4.8 on admit No further IVF -- was given 3L NSS on admission Check TSH -- wnl Check ECHO Lasix 20mg IV x 1, can repeat dose tonight and likely need daily/sliding scale/weight based until f/u at home in [place] Likely would benefit from overnight sleep study/CPAP given likely underlying ANISHA Monitor labs on repeat (3) Hypertension: Plan: Chronic. Well controlled at home w/ metoprolol 100mg daily, lisinopril 40mg daily CTA negative as above, Tylenol/oxycodone for pain control Monitor BP (4) Anxiety: Plan: Chronic Continue Xanax PRN -- changed to scheduled (5) UTI (urinary tract infection): Plan: prior to admit on macrobid, on hold and covering w/ abx for PNA as above urine cx pending -- UA w/o bacteria (6) Hypomagnesemia: Plan: 1.5, IV replacement ordered Monitor on repeat (7) Macrocytosis: Plan: hgb 13.2 , MCV 102.7 check folate/b12 w/ am labs (did report some neuropathy/cramping, ?from low mag vs B12 def) Ppx - Lovenox Plan continued inpatient stay monitor volume status/additional diuretics as needed, weight/I&O ECHO ordered for further eval Admission and Anticipated Discharge Date Admission Date: April 06, 2022 Supervising Physician Co-Signing Physician Notes The patient was not seen by me. Chart was reviewed. Case discussed with JAN Lancaster. Agree with assessment and plan Subjective BRIDGE NOTE--ADMITTED AFTER MIDNIGHT eval this afternoon, anxious this morning and given Xanax. PNA in 2019 intubated x 5 days. Feels similar. Pleuritic chest pain reported and feeling quite fatigued. Denied palpitations but having cramps in her legs and hands. Also had such chills/rigors last night in sweatpants/blankets/etc. Did have urinary sx and got rx for Macrobid. 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 Doing job at [employer] but from [place]. CTA on admit without PE. Moved her bowels about 2 hours ago. Needing something for pain, Tylenol not effective. Would like opiate -- will order x1 and as needed. on 2L NC, +cough. No sputum production. Given dose of lasix this morning. ECHO ordered but not yet done, to eval for any valvular heart disease. Physical Exam Physical Exam: General: patient resting comfortably, NAD, non-toxic in appearance, AA&O x 4 Skin: warm, dry, intact, no rashes or lesions HEENT: NC/AT, PERRL, EOMI, anicteric sclera, conjunctiva without injection, external ear normal to inspection and nontender, nares patent, moist mucus membranes, dentition intact, no oropharyngeal lesions, neck supple, trachea midline, no LAD, no thyromegaly, ?JVD Heart: +S1/S2, regular, no m/r/g Lungs: equal air entry bilaterally, faint crackles bilateral lung bases, diminished in the bases, on 2L NC 94% Abd: +BS, soft, NT/ND, no masses/organomegaly/ascites, no CVA tenderness Ext: warm, 2+ pulses in UE/LE bilaterally, no clubbing/cyanosis or edema pain to palpation lower ribs posteriorly Neuro: nonfocal, patient AA&O x 4, speech intact, no facial droop, moving all extremities on command with equal strength 5/5 Results & Data Results & Data ([facility]) Vital Signs (Past 12 Hours) Vital Signs Temp Pulse Pulse Resp BP BP Pulse Ox 04/06/22 08:14 04/06/22 07:54 37.4 C 97 H 16 107/74 94 04/06/22 06:24 37.5 C 95 H 20 144/88 H 93 04/06/22 05:41 84 15 139/95 04/06/22 04:32 86 14 139/94 96 04/06/22 03:52 90 04/06/22 02:45 92 H 14 148/88 H 97 04/06/22 02:58 103 H 04/06/22 01:55 04/06/22 01:46 37.9 C H O2 Del Method O2 Flow Rate 04/06/22 08:14 Nasal Cannula 2 04/06/22 07:54 Nasal Cannula 2 04/06/22 06:24 Nasal Cannula 2 04/06/22 05:41 Nasal Cannula 2 04/06/22 04:32 Nasal Cannula 2 04/06/22 03:52 Nasal Cannula 2 04/06/22 02:45 Room Air 04/06/22 02:58 04/06/22 01:55 Room Air, Nasal Cannula 88 04/06/22 01:46 Laboratory Results 04/06/22 04/06/22 04/06/22 Range/Units 12:09 12:07 08:09 WBC (4.8-10.8) K/ul RBC (4.20-5.40) M/uL Hgb (12.0-16.0) g/dl Hct (37.0-47.0) % MCV (80.0-100.0) fL MCH (25.0-34.0) pg MCHC (32.0-36.0) g/dL RDW Std Deviation (36.4-46.3) fL RDW Coeff of Aly (11.5-14.5) % Plt Count (130-400) K/uL MPV (9.4-12.4) fL Immature Gran % (Auto) % Neut % (Auto) % Lymph % (Auto) % Cameron % (Auto) % Eos % (Auto) % Baso % (Auto) % Neut # (Auto) (1.40-6.50) K/uL Lymph # (Auto) (1.2-3.4) K/uL Cameron # (Auto) (0.11-0.59) K/uL Eos # (Auto) (0-0.50) K/uL Baso # (Auto) (0-0.2) K/uL Immature Gran # (Auto) (0.01-0.20) K/uL Toxic Vacuolation Sodium (136-145) mmol/L Potassium (3.5-5.1) mmol/L Chloride (98-107) mmol/L Carbon Dioxide (21-32) mmol/L Anion Gap (3-11) BUN (6-23) mg/dl Creatinine (0.6-1.2) mg/dl Est Cr Clr Drug Dosing ml/min Est GFR ( Amer) ml/min Est GFR (Non-Af Amer) ml/min BUN/Creatinine Ratio (10-20) Glucose (70-99(Fasting)) mg/dl Lactate (0.4-2.0) mmol/L Calcium (8.5-10.1) mg/dl Phosphorus (2.5-4.9) mg/dl Magnesium (1.7-2.4) mg/dl Total Bilirubin (0.2-1.0) mg/dl AST (13-39) U/L ALT (7-52) U/L Alkaline Phosphatase (34-104) U/L Troponin I High Sens (0-14) pg/ml B-Natriuretic Peptide 138 H (0-100) pg/ml Total Protein (6.0-8.3) gm/dl Albumin (3.4-5.0) gm/dl Globulin (2.5-4.0) gm/dl Albumin/Globulin Ratio (0.9-2) Procalcitonin 0.21 (0-0.5) ng/ml TSH 0.766 (0.300-4.500) uIu/ml Urine Color Urine Appearance (Clear) Urine pH (4.5-7.5) Ur Specific Marshall (1.000-1.030) Urine Protein (Negative) Urine Glucose (UA) (Negative) Urine Ketones (Negative) Urine Blood (Negative) Urine Nitrite (Negative) Urine Bilirubin (Negative) Urine Urobilinogen (Negative) Ur Leukocyte Esterase (Negative) Urine RBC (0-4) /hpf Urine WBC (0-5) /hpf Ur Epithelial Cells (0-5) /lpf Urine Bacteria (Negative) SARS-CoV-2 (PCR) (Negative) Influenza Type A (PCR) (Neg) Influenza Type B (PCR) (Neg) RSV (RT-PCR) (Neg) 04/06/22 04/05/22 04/05/22 Range/Units 08:09 23:23 23:12 WBC (4.8-10.8) K/ul RBC (4.20-5.40) M/uL Hgb (12.0-16.0) g/dl Hct (37.0-47.0) % MCV (80.0-100.0) fL MCH (25.0-34.0) pg MCHC (32.0-36.0) g/dL RDW Std Deviation (36.4-46.3) fL RDW Coeff of Aly (11.5-14.5) % Plt Count (130-400) K/uL MPV (9.4-12.4) fL Immature Gran % (Auto) % Neut % (Auto) % Lymph % (Auto) % Cameron % (Auto) % Eos % (Auto) % Baso % (Auto) % Neut # (Auto) (1.40-6.50) K/uL Lymph # (Auto) (1.2-3.4) K/uL Cameron # (Auto) (0.11-0.59) K/uL Eos # (Auto) (0-0.50) K/uL Baso # (Auto) (0-0.2) K/uL Immature Gran # (Auto) (0.01-0.20) K/uL Toxic Vacuolation Sodium (136-145) mmol/L Potassium (3.5-5.1) mmol/L Chloride (98-107) mmol/L Carbon Dioxide (21-32) mmol/L Anion Gap (3-11) BUN (6-23) mg/dl Creatinine (0.6-1.2) mg/dl Est Cr Clr Drug Dosing ml/min Est GFR ( Amer) ml/min Est GFR (Non-Af Amer) ml/min BUN/Creatinine Ratio (10-20) Glucose (70-99(Fasting)) mg/dl Lactate 1.3 (0.4-2.0) mmol/L Calcium (8.5-10.1) mg/dl Phosphorus 3.7 (2.5-4.9) mg/dl Magnesium 1.4 L (1.7-2.4) mg/dl Total Bilirubin (0.2-1.0) mg/dl AST (13-39) U/L ALT (7-52) U/L Alkaline Phosphatase (34-104) U/L Troponin I High Sens (0-14) pg/ml B-Natriuretic Peptide (0-100) pg/ml Total Protein (6.0-8.3) gm/dl Albumin (3.4-5.0) gm/dl Globulin (2.5-4.0) gm/dl Albumin/Globulin Ratio (0.9-2) Procalcitonin (0-0.5) ng/ml TSH (0.300-4.500) uIu/ml Urine Color [place] Urine Appearance Clear (Clear) Urine pH (4.5-7.5) Ur Specific Marshall 1.025 (1.000-1.030) Urine Protein (Negative) Urine Glucose (UA) (Negative) Urine Ketones (Negative) Urine Blood (Negative) Urine Nitrite (Negative) Urine Bilirubin (Negative) Urine Urobilinogen (Negative) Ur Leukocyte Esterase (Negative) Urine RBC 10-30 H (0-4) /hpf Urine WBC 10-30 H (0-5) /hpf Ur Epithelial Cells 20-30 H (0-5) /lpf Urine Bacteria Negative (Negative) SARS-CoV-2 (PCR) (Negative) Influenza Type A (PCR) (Neg) Influenza Type B (PCR) (Neg) RSV (RT-PCR) (Neg) 04/05/22 04/05/22 04/05/22 Range/Units 22:41 22:41 21:48 WBC 10.93 H (4.8-10.8) K/ul RBC 3.69 L (4.20-5.40) M/uL Hgb 13.2 (12.0-16.0) g/dl Hct 37.9 (37.0-47.0) % MCV 102.7 H (80.0-100.0) fL MCH 35.8 H (25.0-34.0) pg MCHC 34.8 (32.0-36.0) g/dL RDW Std Deviation 51.0 H (36.4-46.3) fL RDW Coeff of Aly 13.4 (11.5-14.5) % Plt Count 175 (130-400) K/uL MPV 11.8 (9.4-12.4) fL Immature Gran % (Auto) 0.6 % Neut % (Auto) 92.6 % Lymph % (Auto) 2.7 % Cameron % (Auto) 3.2 % Eos % (Auto) 0.8 % Baso % (Auto) 0.1 % Neut # (Auto) 10.11 H (1.40-6.50) K/uL Lymph # (Auto) 0.30 L (1.2-3.4) K/uL Cameron # (Auto) 0.35 (0.11-0.59) K/uL Eos # (Auto) 0.09 (0-0.50) K/uL Baso # (Auto) 0.01 (0-0.2) K/uL Immature Gran # (Auto) 0.07 (0.01-0.20) K/uL Toxic Vacuolation 1+ Sodium 135 L (136-145) mmol/L Potassium 3.8 (3.5-5.1) mmol/L Chloride 104 (98-107) mmol/L Carbon Dioxide 23 (21-32) mmol/L Anion Gap 8 (3-11) BUN 15 (6-23) mg/dl Creatinine 0.64 (0.6-1.2) mg/dl Est Cr Clr Drug Dosing 112.3 ml/min Est GFR ( Amer) 117.3 ml/min Est GFR (Non-Af Amer) 101.2 ml/min BUN/Creatinine Ratio 23.4 H (10-20) Glucose 126 H (70-99(Fasting)) mg/dl Lactate (0.4-2.0) mmol/L Calcium 9.7 (8.5-10.1) mg/dl Phosphorus (2.5-4.9) mg/dl Magnesium (1.7-2.4) mg/dl Total Bilirubin 1.1 H (0.2-1.0) mg/dl AST 19 (13-39) U/L ALT 17 (7-52) U/L Alkaline Phosphatase 73 (34-104) U/L Troponin I High Sens 4.8 (0-14) pg/ml B-Natriuretic Peptide (0-100) pg/ml Total Protein 6.9 (6.0-8.3) gm/dl Albumin 4.5 (3.4-5.0) gm/dl Globulin 2.4 L (2.5-4.0) gm/dl Albumin/Globulin Ratio 1.9 (0.9-2) Procalcitonin (0-0.5) ng/ml TSH (0.300-4.500) uIu/ml Urine Color Urine Appearance (Clear) Urine pH (4.5-7.5) Ur Specific Marshall (1.000-1.030) Urine Protein (Negative) Urine Glucose (UA) (Negative) Urine Ketones (Negative) Urine Blood (Negative) Urine Nitrite (Negative) Urine Bilirubin (Negative) Urine Urobilinogen (Negative) Ur Leukocyte Esterase (Negative) Urine RBC (0-4) /hpf Urine WBC (0-5) /hpf Ur Epithelial Cells (0-5) /lpf Urine Bacteria (Negative) SARS-CoV-2 (PCR) NEGATIVE (Negative) Influenza Type A (PCR) Negative (Neg) Influenza Type B (PCR) Negative (Neg) RSV (RT-PCR) Negative (Neg) Diagnostic Findings Chest X-Ray 04/05/22 23:12 XR chest 1V portable HISTORY: cough COMPARISON: None. FINDINGS: No pneumothorax. The heart is enlarged. There is mild interstitial pulmonary edema and trace bilateral pleural effusions. Bibasilar linear densities favor subsegmental atelectasis. IMPRESSION: Cardiomegaly with mild interstitial pulmonary edema and trace bilateral pleural effusions. ACT 112: Negative or not required by law. Electronically signed by: Vikas Singh M.D. 04/06/2022 10:46 AM Abdomen/Pelvis CT 04/06/22 01:42 CT OF THE ABDOMEN AND PELVIS WITH CONTRAST CLINICAL HISTORY: Back pain. COMPARISON STUDY: None. TECHNIQUE: Following IV administration of 109 mL of Optiray, axial images of the abdomen and pelvis were obtained from the lung bases to the proximal femurs. Images were reviewed in the axial, sagittal, and coronal planes. IV contrast was administered without complication. Automated exposure control was utilized for the study. A dose lowering technique was utilized adhering to the principles of ALARA. FINDINGS: Please note that the chest CT will be reported separately. There is a trace left pleural effusion. Interlobular septal thickening is noted. Subpleural opacities favor atelectasis. There is pectus excavatum deformity. No pneumatosis, free air or portal venous gas is present. Liver, spleen, adrenal glands, kidneys and pancreas are unremarkable. There is no biliary or pancreatic ductal dilatation. No hydronephrosis. No peripancreatic or pericholecystic infiltration is present. There is no evidence for a bowel obstruction. The appendix is surgically absent. There is trace fluid within the pelvis. Bladder wall thickening is noted. There is mild adjacent stranding. There is no lymphadenopathy. Major vasculature is patent. Moderate atherosclerotic plaque within the abdominal aorta is noted. Caliber of the vessels normal. No acute fractures within the visualized skeletal structures are present. No suspicious osseous lesions are present. Minimal degenerative changes within the lumbar spine are present. A few splenules are present. IMPRESSION: 1. Bladder wall thickening which could be correlated with urinalysis to exclude cystitis. 2. Trace fluid within the pelvis. 3. No bowel obstruction. No bowel wall thickening. 4. Trace left pleural effusion. Mild interstitial pulmonary edema within the lung bases. ACT 112: Negative or not required by law. Electronically signed by: Je Young M.D. 04/06/2022 6:37 AM Chest CTA 04/06/22 01:42 CT ANGIOGRAPHY OF THE CHEST, PULMONARY EMBOLUS PROTOCOL CLINICAL HISTORY: Chest pain. Shortness of breath. COMPARISON STUDY: Chest radiograph performed earlier today. TECHNIQUE: Following IV administration of 109 mL of Optiray, helical axial images of the chest were obtained utilizing the pulmonary embolus protocol. Maximal intensity projections and sagittal and coronal reformats were viewed on an independent 3D workstation. IV contrast was administered without complication. Automated exposure control was utilized for the study. A dose lowering technique was utilized adhering to the principles of ALARA. CT DOSE: 721.60 mGy.cm FINDINGS: No pulmonary emboli are identified. There is mild dilatation of the central pulmonary arteries. There is pectus excavatum deformity. Mild cardiomegaly is noted. Is no pericardial effusion. A trace left pleural effusion is noted. There is no pneumothorax. Multifocal subpleural opacities favor atelectasis. There is interlobular septal thickening. Subpleural cystic change/paraseptal emphysema within the right upper lobe is noted. Central airways are patent. No fractures or suspicious lesions within the bony thorax are present. No pathologically enlarged thoracic lymph nodes are present. There are prominent mediastinal and hilar lymph nodes. Several calcified thoracic lymph nodes are present. Bronchial wall thickening may be related to volume overload. IMPRESSION: 1. No pulmonary emboli identified. 2. Interstitial pulmonary edema with trace left pleural effusion. 3. Subpleural opacities which favor atelectasis. Although less likely, an infectious process cannot be excluded. 4. Mild cardiomegaly and mild dilatation of the central pulmonary arteries which raises the possibility of pulmonary arterial hypertension. ACT 112: Negative or not required by law. Electronically signed by: Je Young M.D. 04/06/2022 6:45 AM PG Care Time/CCT Total # of Minutes Spent Total Time Spent with Patient: Total time spent is greater than 50% in coordination of care (as documented) at patient's floor/unit and/or counseling patient: Coding Level of Care Code None Diagnoses Pneumonia J18.9 CHF (congestive heart failure) I50.9 Hypertension I10 Anxiety F41.9 UTI (urinary tract infection) N39.0 Hypomagnesemia E83.42 Macrocytosis D75.89
--- NOTE | 2022-04-06 17:17 | XCELERA ---
[id number]
[2022-04-06] MEDS ORDERED: ACETAMINOPHEN 500 MG TAB PO PRN (17:52)
[2022-04-06] MEDS: ALPRAZolam 0.5 MG TABLET PO SCH (20:20)
[2022-04-07] MEDS: IBUPROFEN 600 MG TAB PO PRN (00:39)
[2022-04-07] MEDS: cefTRIAXone SODIUM 2,000 MG in DEXTROSE 5% 50 ML IV SCH (01:39)
[2022-04-07 06:10] LABS: Hematocrit (blood only) 35.9 % (37.0-47.0); Hemoglobin 12.2 g/dl (12.0-16.0); Mean Corpuscular Hemoglobin 34.9 pg (25.0-34.0); Mean Corpuscular Volume 102.6 fL (80.0-100.0); Mean Platelet Volume 11.4 fL (9.4-12.4); Platelet Count 144 K/uL (130-400); RDW Coefficient of Variation 13.3 % (11.5-14.5); RDW Standard Deviation 50.9 fL (36.4-46.3); White Blood Count 8.07 K/ul (4.8-10.8)
[2022-04-07 06:42] LABS: Albumin Level 3.5 gm/dl (3.4-5.0); Bilirubin Direct 0.1 mg/dl (0-0.2); Bilirubin,Total 0.4 mg/dl (0.2-1.0); Calcium 8.4 mg/dl (8.5-10.1); Creatinine Clr Calc Pharmacy 137.4 ml/min; Potassium 3.5 mmol/L (3.5-5.1); Total Protein 5.9 gm/dl (6.0-8.3)
[2022-04-07 07:53] LABS: Magnesium 2.1 mg/dl (1.7-2.4)
[2022-04-07] MEDS ORDERED: FUROSEMIDE INJ 20 MG/2 ML VIAL IV ONE (08:25)
[2022-04-07] MEDS ORDERED: POTASSIUM CHLORIDE CRTAB 20 MEQ TABCR PO STA (08:25)
--- NOTE | 2022-04-07 08:34 | Hospitalist Progress Note ---
Date of Service April 07, 2022 Assessment & Plan (1) Pneumonia: Plan: Patient presented with fever/chills/back pain/+cough with leukocytosis and hypoxia requiring supplemental O2. Traveled by car from [place] for work at [employer] [facility] [employer] and recent started Macrobid for suspected UTI. Of note, patient states similar experience at beginning of pandemic and had been intubated x 5 days (reports to be from volume overload/effusions) and does report increased fatigue recently/daytime sleepiness and likely underlying ANISHA Procal 0.21 CTA chest NEGATIVE for PE -- notes interstitial pulmonary edema w/ trace L pleural effusion, subpleural opacities favoring atelectasis -- although less likely, infectious process not excluded. Mild cardiomegaly w/ mild dilation of central pulmonary arteries raises possibility of PAH ?viral pneumonia vs CHF, mild elevation of BNP however ECHO looks fine. Did get lasix 20mg IV x 2 yesterday, once this morning and reporting feeling improved Continues on Ceftriaxone/Azithromycin Fever 38C yesterday -- ibuprofen/tylenol available BCx NGTD after 24 hours WBC trending down Incentive spirometer, flutter valve, pulmonary toilet, added mucinex BID *1/2ppd smoker , cxr today did note bronchial wall thickening compatible w/ airway disease, atelectasis -- encouraged incentive spirometer use. +topical voltaren for pain control Of note, reports increased Na/fluid intake -- limit/monitoring weights at home. Also rec outpt sleep study Discussed w/ supervising provider and they added IV solumedrol and likely no need for taper at d/c but will monitor response Supplemental O2 as needed -- currently 95% on 2L. Wean as able (2) CHF (congestive heart failure): Plan: possible elevated BNP/interstitial edema on imaging/hyponatremia. Trop 4.8 on admit Was given 3L NSS on admission TSH -- wnl Check ECHO -- LV systolic function normal. RVSP is normal. Small apical left ventricular diverticulum noted. NO significant valvular heart disease Given Lasix 20mg IV x 2 on 04/06, additional dose for this morning and monitor (CXR reported mod pulm edema, slightly worsened however appears improved on exam and will hold off further dose for this evening) ?benefit outpatient sleep study given daytime fatigue/snoring Monitor volume status in AM (3) Hypertension: Plan: Chronic. Well controlled at home w/ metoprolol 100mg daily, lisinopril 40mg daily CTA negative as above, Tylenol/oxycodone for pain control (4) Anxiety: Plan: Chronic Continue Xanax PRN -- changed to scheduled (5) UTI (urinary tract infection): Plan: prior to admit on macrobid, on hold and covering w/ abx for PNA as above urine cx pending -- UA w/o bacteria, culture final mixed skin elijah (6) Hypomagnesemia: Plan: 1.5 -- IV replacement ordered and 2.1 on repeat Monitor in AM to ensure remains stable (7) Macrocytosis: Plan: hgb 13.2 , MCV 102.7 B12/folate w/o significant deficiency however are on low side -- f/u pcp for further eval Ppx - Lovenox while inpatient Plan continued inpatient stay on IV abx supportive care +IV solumedrol for today and monitoring response Admission and Anticipated Discharge Date Admission Date: April 06, 2022 Supervising Physician Co-Signing Physician Notes The patient was seen by me. Chart reviewed. Case discussed with JAN Valdovinos. The patient's symptoms appear to be more along the lines of a viral syndrome with possible early viral pneumonia. Cardiac echo was unremarkable and she has no previous history of congestive heart failure. Current clinical exam is negative for CHF. We will keep her on the dry side however with IV Lasix because I believe she has early viral pneumonia. Oxygen will be weaned off as tolerated. Parenteral steroid administration ordered. Hopefully she will be able to go home tomorrow on room air, April 08 Subjective eval this morning, at bedside. breathing improved. Fever overnight, improvement w/ ibuprofen discussed possible CHF/improvement in symptoms w/ diuretics and kidney function stable. Leg cramping improved, mag improved on labs. states pain to thoracic spine/posterior ribs, L>R, reproducible. Discussed use of topical voltaren as she notes could be because she has been laying in bed for several days. Discussed sodium intake -- does endorse likes salt, they do try and cook/limit extra things and not much processed food. Discussed overall volume/fluid intake -- she does endorse she drinks ALOT and also discussed combination of excessive fluid/salt, also possible underlying sleep apnea that will need followed up. Questions/concerns addressed at this time. Physical Exam Physical Exam: General: WN/WD female sitting up in bed, NAD, at bedside HEENT: head normocephalic, atraumatic, mmm, trachea midline without deviation Resp: poor effort, no obvious wheezing/rales, faint crackles, no distress/tachypnea, on 2L NC CV: RRR, no significant m/r/g, no pitting edema/calf tenderness, pulses palpable GI: +BS,soft/NT : no cva tenderness, no ross MSK/Neuro: tender to palpation thoracic region of back, reproducible on palpation, more on the left than right no focal defict, no slurred speech, follows commands Psych: AOx3, cooperative Results & Data Results & Data ([facility]) Vital Signs (Past 12 Hours) Vital Signs Temp Pulse Resp BP Pulse Ox O2 Del Method O2 Flow Rate 04/07/22 07:00 36.7 C 83 101/69 94 Nasal Cannula 2 04/06/22 22:24 102/60 04/06/22 22:07 37.6 C H 89 16 98/65 L 95 Nasal Cannula 2 Laboratory Results 04/07/22 04/07/22 04/07/22 Range/Units 05:42 05:42 05:42 WBC (4.8-10.8) K/ul RBC (4.20-5.40) M/uL Hgb (12.0-16.0) g/dl Hct (37.0-47.0) % MCV (80.0-100.0) fL MCH (25.0-34.0) pg MCHC (32.0-36.0) g/dL RDW Std Deviation (36.4-46.3) fL RDW Coeff of Aly (11.5-14.5) % Plt Count (130-400) K/uL MPV (9.4-12.4) fL Immature Gran % (Auto) % Neut % (Auto) % Lymph % (Auto) % Knott % (Auto) % Eos % (Auto) % Baso % (Auto) % Neut # (Auto) (1.40-6.50) K/uL Lymph # (Auto) (1.2-3.4) K/uL Knott # (Auto) (0.11-0.59) K/uL Eos # (Auto) (0-0.50) K/uL Baso # (Auto) (0-0.2) K/uL Immature Gran # (Auto) (0.01-0.20) K/uL Sodium 137 (136-145) mmol/L Potassium 3.5 (3.5-5.1) mmol/L Chloride 106 (98-107) mmol/L Carbon Dioxide 26 (21-32) mmol/L Anion Gap 5 (3-11) BUN 7 (6-23) mg/dl Creatinine 0.54 L (0.6-1.2) mg/dl Est Cr Clr Drug Dosing 137.4 ml/min Est GFR ( Amer) 124.0 ml/min Est GFR (Non-Af Amer) 107.0 ml/min BUN/Creatinine Ratio 13.0 (10-20) Glucose 101 H (70-99(Fasting)) mg/dl Calcium 8.4 L (8.5-10.1) mg/dl Magnesium Cancelled 2.1 (1.7-2.4) mg/dl Total Bilirubin 0.4 D (0.2-1.0) mg/dl Direct Bilirubin 0.1 (0-0.2) mg/dl AST 12 L (13-39) U/L ALT 12 (7-52) U/L Alkaline Phosphatase 54 (34-104) U/L Total Protein 5.9 L (6.0-8.3) gm/dl Albumin 3.5 (3.4-5.0) gm/dl Vitamin B12 419 (180-914) pg/ml Folate 8.38 (>5.38) ng/ml 04/07/22 Range/Units 05:42 WBC 8.07 (4.8-10.8) K/ul RBC 3.50 L (4.20-5.40) M/uL Hgb 12.2 (12.0-16.0) g/dl Hct 35.9 L (37.0-47.0) % MCV 102.6 H (80.0-100.0) fL MCH 34.9 H (25.0-34.0) pg MCHC 34.0 (32.0-36.0) g/dL RDW Std Deviation 50.9 H (36.4-46.3) fL RDW Coeff of Aly 13.3 (11.5-14.5) % Plt Count 144 (130-400) K/uL MPV 11.4 (9.4-12.4) fL Immature Gran % (Auto) 0.4 % Neut % (Auto) 88.1 % Lymph % (Auto) 5.2 % Knott % (Auto) 3.7 % Eos % (Auto) 2.6 % Baso % (Auto) 0.0 % Neut # (Auto) 7.07 H (1.40-6.50) K/uL Lymph # (Auto) 0.42 L (1.2-3.4) K/uL Knott # (Auto) 0.30 (0.11-0.59) K/uL Eos # (Auto) 0.21 (0-0.50) K/uL Baso # (Auto) 0.00 (0-0.2) K/uL Immature Gran # (Auto) 0.03 (0.01-0.20) K/uL Sodium (136-145) mmol/L Potassium (3.5-5.1) mmol/L Chloride (98-107) mmol/L Carbon Dioxide (21-32) mmol/L Anion Gap (3-11) BUN (6-23) mg/dl Creatinine (0.6-1.2) mg/dl Est Cr Clr Drug Dosing ml/min Est GFR ( Amer) ml/min Est GFR (Non-Af Amer) ml/min BUN/Creatinine Ratio (10-20) Glucose (70-99(Fasting)) mg/dl Calcium (8.5-10.1) mg/dl Magnesium (1.7-2.4) mg/dl Total Bilirubin (0.2-1.0) mg/dl Direct Bilirubin (0-0.2) mg/dl AST (13-39) U/L ALT (7-52) U/L Alkaline Phosphatase (34-104) U/L Total Protein (6.0-8.3) gm/dl Albumin (3.4-5.0) gm/dl Vitamin B12 (180-914) pg/ml Folate (>5.38) ng/ml Diagnostic Findings Chest X-Ray 04/07/22 06:00 XR chest 1V portable CLINICAL HISTORY: follow up TECHNIQUE: Single frontal radiograph of the chest was obtained. Comparison: Comparison is made to chest radiograph 04/06/2022 FINDINGS: No lines and tubes are seen. The cardiomediastinal silhouette is normal. Airspace opacities are seen in the left lateral lung and right lower medial lung. Cephalization of the pulmonary vasculature and Abhay B lines are noted. Bronchial wall thickening is noted. A left pleural effusion cannot be entirely excluded. No evidence of pneumothorax. IMPRESSION: 1. Bilateral lower lung airspace opacities are compatible with atelectasis seen on prior exam. 2. Moderate pulmonary edema, likely slightly increased from prior exam. 3. Bronchial wall thickening compatible with airways disease. ACT 112: Negative or not required by law. Electronically signed by: Yovani Shipley M.D. 04/07/2022 12:42 PM PG Care Time/CCT Total # of Minutes Spent Total Time Spent with Patient: Total time spent is greater than 50% in coordination of care (as documented) at patient's floor/unit and/or counseling patient: Coding Level of Care Code 11239 SUB INP/OBS CARE 235MIN Diagnoses Pneumonia J18.9 CHF (congestive heart failure) I50.9 Hypertension I10 Anxiety F41.9 UTI (urinary tract infection) N39.0 Hypomagnesemia E83.42 Macrocytosis D75.89
[2022-04-07 09:51] LABS: Eosinophils # (auto) 0.21 K/uL (0-0.50); Eosinophils % (auto) 2.6 %; Immature Granulocytes # (auto) 0.03 K/uL (0.01-0.20); Immature Granulocytes % (auto) 0.4 %; Lymphocytes # (auto) 0.42 K/uL (1.2-3.4); Lymphocytes % (auto) 5.2 %; Monocytes % (auto) 3.7 %; Neutrophils # (auto) 7.07 K/uL (1.40-6.50); Neutrophils % (auto) 88.1 %
[2022-04-07] MEDS: ALPRAZolam 0.5 MG TABLET PO SCH ×2 (10:12→20:58)
[2022-04-07] MEDS: AZITHROMYCIN 250 MG in DEXTROSE 5% 250 ML IV SCH (10:15)
[2022-04-07] MEDS: ENOXAPARIN INJ 40 MG/0.4 ML SYR SQ SCH (10:15)
[2022-04-07] MEDS: METOPROLOL SUCC 50MG EXT REL TAB PO SCH (10:16)
--- NOTE | 2022-04-07 12:43 | XRay Report ---
XR chest 1V portable CLINICAL HISTORY: follow up TECHNIQUE: Single frontal radiograph of the chest was obtained. Comparison: Comparison is made to chest radiograph 04/06/2022 FINDINGS: No lines and tubes are seen. The cardiomediastinal silhouette is normal. Airspace opacities are seen in the left lateral lung and right lower medial lung. Cephalization of the pulmonary vasculature and Abhay B lines are noted. Bronchial wall thickening is noted. A left pleural effusion cannot be entir luis excluded. No evidence of pneumothorax. IMPRESSION: 1. Bilateral lower lung airspace opacities are compatible with atelectasis seen on prior exam. 2. Moderate pulmonary edema, likely slightly increased from prior exam. 3. Bronchial wall thickening compatible with airways disease. ACT 112: Negative or not required by law. Electronically signed by: Yovani Shipley M.D. 04/07/2022 12:42 PM
[2022-04-07] MEDS: lisinopril 40 MG TAB PO SCH (13:01)
[2022-04-07] MEDS: methylPREDNISolone 40 MG in SYRINGE 0 ML IV SCH ×2 (13:41→20:58)
[2022-04-07] MEDS: DICLOFENAC SOD 1% GEL 100 GM TUBE EXT SCH ×3 (13:41→20:57)
[2022-04-07] MEDS ORDERED: ALBUTEROL HFA 8 GM INHALER INH PRN (14:35)
[2022-04-07] MEDS: guaiFENesin 600 MG TABCR PO SCH (20:58)
[2022-04-08] MEDS: cefTRIAXone SODIUM 2,000 MG in DEXTROSE 5% 50 ML IV SCH (02:30)
[2022-04-08] MEDS: methylPREDNISolone 40 MG in SYRINGE 0 ML IV SCH (03:35)
[2022-04-08] MEDS: METOPROLOL SUCC 50MG EXT REL TAB PO SCH ×2 (07:59→08:16)
[2022-04-08] MEDS: ENOXAPARIN INJ 40 MG/0.4 ML SYR SQ SCH (07:59)
[2022-04-08] MEDS: guaiFENesin 600 MG TABCR PO SCH (07:59)
[2022-04-08] MEDS: DICLOFENAC SOD 1% GEL 100 GM TUBE EXT SCH (08:01)
--- NOTE | 2022-04-08 08:01 | Hospitalist Progress Note ---
Date of Service April 08, 2022 Assessment & Plan (1) Pneumonia: Plan: Patient presented with fever/chills/back pain/+cough with leukocytosis and hypoxia requiring supplemental O2. Traveled by car from [place] for work at [employer] and recent started Macrobid for suspected UTI. Of note, patient states similar experience at beginning of pandemic and had been intubated x 5 days (reports to be from volume overload/effusions) and does report increased fatigue recently/daytime sleepiness and likely underlying ANISHA Procal 0.21 CTA chest NEGATIVE for PE -- notes interstitial pulmonary edema w/ trace L pleural effusion, subpleural opacities favoring atelectasis -- although less likely, infectious process not excluded. Mild cardiomegaly w/ mild dilation of central pulmonary arteries raises possibility of PAH ?viral pneumonia vs CHF, mild elevation of BNP however ECHO looks fine. Did get lasix 20mg IV x 2 yesterday, once this morning and reporting feeling improved Continues on Ceftriaxone/Azithromycin Fever 38C yesterday -- ibuprofen/tylenol available BCx NGTD after 24 hours WBC trending down Incentive spirometer, flutter valve, pulmonary toilet, added mucinex BID *1/2ppd smoker , cxr today did note bronchial wall thickening compatible w/ airway disease, atelectasis -- encouraged incentive spirometer use. +topical voltaren for pain control Of note, reports increased Na/fluid intake -- limit/monitoring weights at home. Also rec outpt sleep study Discussed w/ supervising provider and they added IV solumedrol and likely no need for taper at d/c but will monitor response Supplemental O2 as needed -- currently 95% on 2L. Wean as able 04/08 --> titrated to room air 95% Switch to PO prednisone -- per discussion w/ supervising provider planning 10mg TID x 2 days, 10mg BID x 2 days, then 10mg daily x 2 days then stop Will complete course abx w/ azithromycin given no clear evidence for bacterial pneumonia and suspect more viral (RSV/COVID/Flu negative, however could have other viral process given her presentation) (2) CHF (congestive heart failure): Plan: possible elevated BNP/interstitial edema on imaging/hyponatremia. Trop 4.8 on admit Was given 3L NSS on admission TSH -- wnl Check ECHO -- LV systolic function normal. RVSP is normal. Small apical left ventricular diverticulum noted. NO significant valvular heart disease Given Lasix 20mg IV x 2 on 04/06, additional dose for this morning and monitor (CXR reported mod pulm edema, slightly worsened however appears improved on exam and will hold off further dose for this evening) ?benefit outpatient sleep study given daytime fatigue/snoring Monitor volume status in AM (3) Hypertension: Plan: Chronic. Well controlled at home w/ metoprolol 100mg daily, lisinopril 40mg daily CTA negative as above, Tylenol/oxycodone for pain control (4) Anxiety: Plan: Chronic Continue Xanax PRN -- changed to scheduled (5) UTI (urinary tract infection): Plan: prior to admit on macrobid, on hold and covering w/ abx for PNA as above urine cx pending -- UA w/o bacteria, culture final mixed skin elijah (6) Hypomagnesemia: Plan: 1.5 -- IV replacement ordered and 2.1 on repeat Monitor in AM to ensure remains stable (7) Macrocytosis: Plan: hgb 13.2 , MCV 102.7 B12/folate w/o significant deficiency however are on low side -- f/u pcp for further eval Ppx - Lovenox while inpatient Plan continued inpatient stay on IV abx supportive care +IV solumedrol for today and monitoring response Admission and Anticipated Discharge Date Admission Date: April 06, 2022 Results & Data Results & Data ([facility]) Vital Signs (Past 12 Hours) Vital Signs Temp Pulse Resp BP Pulse Ox O2 Del Method 04/08/22 07:43 36.3 C L 75 16 129/93 95 Room Air 04/07/22 20:13 Room Air 04/07/22 21:30 96 Room Air 04/07/22 20:55 36.8 C 82 18 96/64 L 95 Room Air PG Care Time/CCT Total # of Minutes Spent Total Time Spent with Patient: Total time spent is greater than 50% in coordination of care (as documented) at patient's floor/unit and/or counseling patient: Coding Diagnoses Pneumonia J18.9 CHF (congestive heart failure) I50.9 Hypertension I10 Anxiety F41.9 UTI (urinary tract infection) N39.0 Hypomagnesemia E83.42 Macrocytosis D75.89
[2022-04-08] MEDS: lisinopril 40 MG TAB PO SCH (08:16)
[2022-04-08] MEDS: ALPRAZolam 0.5 MG TABLET PO SCH (08:16)
[2022-04-08] MEDS ORDERED: predniSONE 10 MG TABLET PO SCH ×2 (09:00)
[2022-04-08] MEDS: AZITHROMYCIN 250 MG in DEXTROSE 5% 250 ML IV SCH (09:03)
[2022-04-08 09:06] LABS: Hematocrit (blood only) 37.4 % (37.0-47.0); Hemoglobin 12.9 g/dl (12.0-16.0); Mean Corpuscular Hemoglobin 35.1 pg (25.0-34.0); Mean Corpuscular Hgb Conc 34.5 g/dL (32.0-36.0); Mean Corpuscular Volume 101.9 fL (80.0-100.0); Mean Platelet Volume 11.4 fL (9.4-12.4); Platelet Count 166 K/uL (130-400); RDW Coefficient of Variation 12.8 % (11.5-14.5); RDW Standard Deviation 48.2 fL (36.4-46.3); Red Blood Count 3.67 M/uL (4.20-5.40); White Blood Count 7.69 K/ul (4.8-10.8)
[2022-04-08 09:24] LABS: BUN Creatinine Ratio 25.5 (10-20); Calcium 9.2 mg/dl (8.5-10.1); Creatinine Clr Calc Pharmacy 157.9 ml/min; Est GFR (African American) 129.8 ml/min; Magnesium 1.9 mg/dl (1.7-2.4); Potassium 3.9 mmol/L (3.5-5.1)
--- NOTE | 2022-04-08 10:02 | Discharge Summary ---
Date of Service April 08, 2022 Admission HPI Per Admitting Provider Tala Mendiola is a pleasant 56yo female with history of HTN presenting with fever, chills and back pain. Patient reports she began to develop UTI symptoms several days ago. She started taking Macrobid. Yesterday 04/05/22 she woke up feeling very ill - fever, chills and body aches as well as SOB and some mild dry cough and chest tightness. She has pain in her back behind her left shoulder as well as across her mid-thoracic region. Feels as though she cannot take a deep breath. She denies abdominal pain, nausea, vomiting or diarrhea. Does have persistent dysuria. Otherwise, no additional complaints. On arrival patient mildly hypoxic with saturation of 92% on room air. She is currently on supplemental O2 - 2L NC saturating 96%. Of note, patient has a history of severe PNA in February 2019 for which she was ventilated x 5 days. Symptoms feel similar. ER Course: ceftriaxone NSS Ibuprofen Admission Exam Per Admitting Provider General: patient resting comfortably, NAD, non-toxic in appearance, AA&O x 4 Skin: warm, dry, intact, no rashes or lesions HEENT: NC/AT, PERRL, EOMI, anicteric sclera, conjunctiva without injection, external ear normal to inspection and nontender, nares patent, moist mucus membranes, dentition intact, no oropharyngeal lesions, neck supple, trachea midline, no LAD, no thyromegaly, no JVD Heart: +S1/S2, regular, no m/r/g Lungs: equal air entry bilaterally, faint crackles bilateral lung bases, no rhonchi or wheeze Abd: +BS, soft, NT/ND, no masses/organomegaly/ascites, no CVA tenderness Ext: warm, 2+ pulses in UE/LE bilaterally, no clubbing/cyanosis or edema Neuro: nonfocal, patient AA&O x 4, speech intact, no facial droop, moving all extremities on command with equal strength 5/5 Principal Diagnosis Chest Pain, Viral Pneumonia Discharge Exam General: WN/WD female sitting up in bed, NAD, appears much improved HEENT: head normocephalic, atrumatic, mmm, trachea midline Resp: improvement in air entry, no distress, no w/c, 95% on RA CV: RRR, no m/r/g, no pitting edema/calf tenderness GI: +BS, soft/NT : no ross, no CVA tenderness MSK/Neuro: moves all extremities, no focal deficits Psych: AOX3, cooperative and pleasant Discharge Data Allergies Allergy/AdvReac Type Severity Reaction Status Date / Time Sulfa (Sulfonamide Allergy Intermediate Rash Verified 04/05/22 23:48 Antibiotics) SINA COLORING Allergy Severe Anaphylaxis Uncoded 04/05/22 23:48 Consultations 04/06/22 05:14 ED Decision to Admit Stat Ordered Studies Chest X-Ray 04/05/22 23:12 XR chest 1V portable HISTORY: cough COMPARISON: None. FINDINGS: No pneumothorax. The heart is enlarged. There is mild interstitial pulmonary edema and trace bilateral pleural effusions. Bibasilar linear densities favor subsegmental atelectasis. IMPRESSION: Cardiomegaly with mild interstitial pulmonary edema and trace bilateral pleural effusions. ACT 112: Negative or not required by law. Electronically signed by: Vikas Singh M.D. 04/06/2022 10:46 AM Abdomen/Pelvis CT 04/06/22 01:42 CT OF THE ABDOMEN AND PELVIS WITH CONTRAST CLINICAL HISTORY: Back pain. COMPARISON STUDY: None. TECHNIQUE: Following IV administration of 109 mL of Optiray, axial images of the abdomen and pelvis were obtained from the lung bases to the proximal femurs. Images were reviewed in the axial, sagittal, and coronal planes. IV contrast was administered without complication. Automated exposure control was utilized for the study. A dose lowering technique was utilized adhering to the principles of ALARA. FINDINGS: Please note that the chest CT will be reported separately. There is a trace left pleural effusion. Interlobular septal thickening is noted. Subpleural opacities favor atelectasis. There is pectus excavatum deformity. No pneumatosis, free air or portal venous gas is present. Liver, spleen, adrenal glands, kidneys and pancreas are unremarkable. There is no biliary or pancreatic ductal dilatation. No hydronephrosis. No peripancreatic or pericholecystic infiltration is present. There is no evidence for a bowel obstruction. The appendix is surgically absent. There is trace fluid within the pelvis. Bladder wall thickening is noted. There is mild adjacent stranding. There is no lymphadenopathy. Major vasculature is patent. Moderate atherosclerotic plaque within the abdominal aorta is noted. Caliber of the vessels normal. No acute fractures within the visualized skeletal structures are present. No suspicious osseous lesions are present. Minimal degenerative changes within the lumbar spine are present. A few splenules are present. IMPRESSION: 1. Bladder wall thickening which could be correlated with urinalysis to exclude cystitis. 2. Trace fluid within the pelvis. 3. No bowel obstruction. No bowel wall thickening. 4. Trace left pleural effusion. Mild interstitial pulmonary edema within the lung bases. ACT 112: Negative or not required by law. Electronically signed by: Je Young M.D. 04/06/2022 6:37 AM Chest CTA 04/06/22 01:42 CT ANGIOGRAPHY OF THE CHEST, PULMONARY EMBOLUS PROTOCOL CLINICAL HISTORY: Chest pain. Shortness of breath. COMPARISON STUDY: Chest radiograph performed earlier today. TECHNIQUE: Following IV administration of 109 mL of Optiray, helical axial images of the chest were obtained utilizing the pulmonary embolus protocol. Maximal intensity projections and sagittal and coronal reformats were viewed on an independent 3D workstation. IV contrast was administered without complicat ion. Automated exposure control was utilized for the study. A dose lowering technique was utilized adhering to the principles of ALARA. CT DOSE: 721.60 mGy.cm FINDINGS: No pulmonary emboli are identified. There is mild dilatation of the central pulmonary arteries. There is pectus excavatum deformity. Mild cardiomegaly is noted. Is no pericardial effusion. A trace left pleural effusion is noted. There is no pneumothorax. Multifocal subpleural opacities favor atelectasis. There is interlobular septal thickening. Subpleural cystic change/paraseptal emphysema within the right upper lobe is noted. Central airways are patent. No fractures or suspicious lesions within the bony thorax are present. No pathologically enlarged thoracic lymph nodes are present. There are prominent mediastinal and hilar lymph nodes. Several calcified thoracic lymph nodes are present. Bronchial wall thickening may be related to volume overload. IMPRESSION: 1. No pulmonary emboli identified. 2. Interstitial pulmonary edema with trace left pleural effusion. 3. Subpleural opacities which favor atelectasis. Although less likely, an infectious process cannot be excluded. 4. Mild cardiomegaly and mild dilatation of the central pulmonary arteries which raises the possibility of pulmonary arterial hypertension. ACT 112: Negative or not required by law. Electronically signed by: Je Young M.D. 04/06/2022 6:45 AM Chest X-Ray 04/07/22 06:00 XR chest 1V portable CLINICAL HISTORY: follow up TECHNIQUE: Single frontal radiograph of the chest was obtained. Comparison: Comparison is made to chest radiograph 04/06/2022 FINDINGS: No lines and tubes are seen. The cardiomediastinal silhouette is normal. Airspace opacities are seen in the left lateral lung and right lower medial lung. Cephalization of the pulmonary vasculature and Abhay B lines are noted. Bronchial wall thickening is noted. A left pleural effusion cannot be entirely excluded. No evidence of pneumothorax. IMPRESSION: 1. Bilateral lower lung airspace opacities are compatible with atelectasis seen on prior exam. 2. Moderate pulmonary edema, likely slightly increased from prior exam. 3. Bronchial wall thickening compatible with airways disease. ACT 112: Negative or not required by law. Electronically signed by: Yovani Shipley M.D. 04/07/2022 12:42 PM Chest X-Ray 04/08/22 08:56 XR chest 1V portable CLINICAL HISTORY: follow up TECHNIQUE: Single frontal radiograph of the chest was obtained. Comparison: Comparison is made to chest radiograph 04/07/2022 FINDINGS: No lines and tubes are seen. The cardiomediastinal silhouette is normal. Prominence and cephalization of the vasculature is seen. Small left pleural effusion is seen. IMPRESSION: Small left pleural effusion. Mild pulmonary edema. ACT 112: Negative or not required by law. Electronically signed by: Yovani Shipley M.D. 04/08/2022 10:04 AM Hospital Course (1) Pneumonia: Patient presented with fever/chills/back pain/+cough with leukocytosis and hypoxia requiring supplemental O2. Traveled by car from [place] for work at [employer] and recent started Macrobid for suspected UTI. Of note, patient states similar experience at beginning of pandemic and had been intubated x 5 days (reports to be from volume overload/effusions) and does report increased fatigue recently/daytime sleepiness and likely underlying ANISHA CTA chest NEGATIVE for PE -- notes interstitial pulmonary edema w/ trace L pleural effusion, subpleural opacities favoring atelectasis -- although less likely, infectious process not excluded. Mild cardiomegaly w/ mild dilation of central pulmonary arteries raises possibility of PAH Procal 0.21 (b12/folate borderline) ?viral pneumonia vs CHF, mild elevation of BNP however ECHO looks fine. Did get lasix 20mg IV x 2 04/06, one dose 04/07 and CXR resolving and patient 95% on RA Continues on Ceftriaxone/Azithromycin Fever 38C prior, nothing since -- ibuprofen/tylenol available -- further suspect viral mediated and started IV methylpredisolone 40mg IV TID 04/07 04/08 --> titrated to room air 95% no further CP/SOB or issues w/ inspiration WBC trended down, normalized Blood cultures remained NGTD Continued incentive spirometer, pulmonary toilet, mucinex. Smoking cessation encouraged Switched methylprednisolone to PO prednisone -- per discussion w/ supervising provider planning 10mg TID x 2 days, 10mg BID x 2 days, then 10mg daily x 2 days then stop Will complete course abx w/ azithromycin given no clear evidence for bacterial pneumonia and suspect more viral (RSV/COVID/Flu negative, however could have other viral process given her presentation) Patient feeling much better, discussed likely viral related, no abx at discharge and planning steroid taper. Of note, B12/folate borderline -- does drink wine. Discussed replacement. She is to be on liquid B12 but reports does forgeet. Encouraged replacement. (2) CHF (congestive heart failure): possible however low suspcision. BNP minimal elevation. Trop 4.8 ECHO-- LV systolic function normal. RVSP is normal. Small apical left ventricular diverticulum noted. NO significant valvular heart disease TSH wnl Several doses IV lasix w/ resolution in symptoms, CXR improved ?benefit from sleep study as outpatient given reported symptoms while inpatient F/u outpatient (3) Hypertension: Chronic. Well controlled at home w/ metoprolol 100mg daily, lisinopril 40mg daily CTA negative as above, Tylenol/oxycodone for pain control as needed, w/ voltaren (4) Anxiety: Chronic Continue Xanax PRN -- changed to scheduled while inpatient (5) UTI (urinary tract infection): prior to admit on macrobid, on hold and covering w/ abx for PNA as above urine cx NEGATIVE no abx at d/c (6) Hypomagnesemia: low, replacement ordered, normalized on repeat (7) Macrocytosis: hgb 13.2 , MCV 102.7 B12/folate w/o significant deficiency however are on low side -- f/u pcp for further eval she notes she was to be on oral B12 (endorses wine intake) rec OTC folate as well Ppx - Lovenox while inpatient Plan discharged home w/ prednisone taper outpt f/u pcp copy chart/disc for at home Total Time Total Time Spent Total Time Spent (In Minutes): 35 Discharge Plan Discharge Items Patient Disposition: Home - Self-Care Reason For Visit: PNEUMONIA Discharge Diagnosis: Viral Pneumonia Goals: You have been hospitalized for an acute medical problem. During your stay at [facility], we have made an effort to correct the problem that brought you to the hospital while keeping you as comfortable as possible. Medications were used to bring your condition under control and your discharge instructions will include directions for any medications you should take after leaving the hospital. Please make sure you see your Primary Care Provider as part of your follow up plan. Activity: As commented below Non-emergency contact: Primary Care Provider Call non-emergency contact if: you have any medication questions, your symptoms worsen and your pain is not controlled Follow-up/Referrals: Vera Hernández [Other] PCP,NO [Primary Care Provider] - Diet: Heart Healthy Addtl Attending Provider Instructions: You have been hospitalized for chest pain/possible pneumonia. Imaging was NEGATIVE for any blood clots. Urine culture is NEGATIVE. You were treated with IV antibiotics and lasix for some fluid overload but this could have been from diet/illness and your ultrasound of the heart did not show any significant abnormalities. You were improved after starting steroids and you will continue prednisone 10mg three times a day for two days, then 10mg twice daily for two days, then 10mg daily for two days to complete the taper. Please continue incentive spirometer to help with breathing and continue mucinex to help clear mucus. You should AVOID smoking which can worsen your breathing. As discussed later, you should continue your B12 supplementation and you should consider over the counter folate as well. These weren't technically deficient however lows can contribute to symptoms as we talked about. Please follow up with primary care in the next 7-10 days to monitor your status. Please return to the closest ER with any worsening breathing, shortness of breath, chest pain, or for any other symptoms concerning for you. Take care! Pending Studies at Discharge: Yes Stand-Alone Forms: My [facility], Smoking Cessation Medications and DC Order Prescriptions: New prednisone 10 mg Tablet See Rx Instructions .ROUTE .COMPLEX Qty: 11 0RF Rx Instructions: take 10mg three times daily for two days, then decrease to 10mg twice daily for two days, then 10mg daily for two days to complete taper guaifenesin [Mucinex] 600 mg Tablet Extended Release 12hr 600 mg PO Q12 Qty: 14 0RF Continued metoprolol succinate 100 mg Tablet Extended Release 24 Hr 100 mg PO DAILY alprazolam 0.5 mg Tablet 0.5 - 1 mg PO DIRECTED PRN (Reason: Anxiety) lisinopril 40 mg Tablet 40 mg PO DAILY fluticasone propionate 50 mcg/actuation [place],Suspension 1 spray INTRANASAL DAILY PRN (Reason: Congestion) Rx Instructions: administer into each nostril Discontinued nitrofurantoin monohyd/m-cryst [Macrobid] 100 mg Capsule 100 mg PO BID Rx Instructions: must administer with a meal/food Discharge Orders: Discharge Order (Routine); Ordered 04/08/22 Ordered By: Stacy Rodgers/Other Patient Handouts: What Is Pneumonia? Admission Data Admit Date/Time: 04/06/22 05:21 Attending Provider: Jamie Ernst Admit Provider: Corrina Sterling Primary Care Provider: PCP,NO Other Providers: Corrina Sterling Other Interventions: Discharge Summary Assessment (RN) Last Done: 04/08/22 10:21 Supervising Physician Co-Signing Physician Notes The patient was seen and examined by me. Chart was reviewed. Chest x-ray today, April 08, looks better. I suspect she had early viral pneumonia from her viral illness which is improving. She will be discharged today on a prednisone taper. She is now on room air. is at the bedside. Case discussed with JAN Lancaster Coding Level of Care Code HOSP INP/OBS DISCH >30 MIN Diagnoses Pneumonia J18.9 CHF (congestive heart failure) I50.9 Hypertension I10 Anxiety F41.9 UTI (urinary tract infection) N39.0 Hypomagnesemia E83.42 Macrocytosis D75.89
--- NOTE | 2022-04-08 10:05 | XRay Report ---
XR chest 1V portable CLINICAL HISTORY: follow up TECHNIQUE: Single frontal radiograph of the chest was obtained. Comparison: Comparison is made to chest radiograph 04/07/2022 FINDINGS: No lines and tubes are seen. The cardiomediastinal silhouette is normal. Prominence and cephalization of the vasculature is seen. Small left pleural effusion is seen. IMPRESSION: Small left pleural effusion. Mild pulmonary edema. ACT 112: Negative or not required by law. Electronically signed by: Yovani Shipley M.D. 04/08/2022 10:04 AM
== END 2022-04-08 11:40 | disposition home or self-care (01) | DRG 194 ==
LOC: ED 21:32 → 3N 04-06 05:21 → SUATTDRO 04-06 05:21 → 3N 04-06 05:41